=== PATIENT | male | born 2000 | race Caucasian/White ===

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

== ENCOUNTER 2018-05-07 17:08 | Emergency (ER) | payer BC ==
[2018-05-07 17:42] VITALS: BP 121/56
--- NOTE | 2018-05-07 18:00 | UC ---
Respiratory Complaint HPI - HPI Summary HPI Summary: COUGH X 1 WEEK , CHEST CONGESTION , NASAL CONGESTION, PND, SINUS PAIN AND PRESSURE + SOB, WHEEZING NO FEVER, + CHILLS - History of Current Complaint Chief Complaint: UCRespiratory Stated Complaint: URI Time Seen by Provider: 05/07/18 17:56 Hx Obtained From: Patient Onset/Duration: Gradual Onset, Lasting Days - 7, Still Present Timing: Constant Severity Initially: Moderate Severity Currently: Moderate Pain Intensity: 4 Character: Cough: Nonproductive Aggravating Factors: Exertion, Deep Breaths Alleviating Factors: Nothing Associated Signs And Symptoms: Positive: Wheezing, URI, Nasal Congestion. Negative: Dyspnea, Fever, Chills, Pleuritic Chest Pain, Hemoptysis, Dizziness, Calf Pain, Calf Swelling - Allergies/Home Medications Allergies/Adverse Reactions: Allergies Allergy/AdvReac Type Severity Reaction Status Date / Time MS Benzoyl Peroxide Allergy Rash And Verified 09/10/16 08:37 [From Benzaclin] Itching MS Clindamycin Allergy Rash And Verified 09/10/16 08:37 [From Benzaclin] Itching PMH/Surg Hx/FS Hx/Imm Hx Previously Healthy: Yes - Surgical History Surgical History: Yes Surgery Procedure, Year, and Place: Repair of nasal fracture 12/23/13,. 2013 APPENDECTOMY, [facility] - Family History Known Family History: Negative: Cardiac Disease, Hypertension, Diabetes - Social History Alcohol Use: Weekly Substance Use Type: Marijuana Smoking Status (MU): Light Every Day Tobacco Smoker Have You Smoked in the Last Year: No - Immunization History Vaccination Up to Date: Yes Review of Systems Constitutional: Negative Skin: Negative Eyes: Negative ENT: Sore Throat, Nasal Discharge Respiratory: Cough Cardiovascular: Negative Is Patient Immunocompromised?: No All Other Systems Reviewed And Are Negative: Yes Physical Exam Triage Information Reviewed: Yes Appearance: Well-Appearing, No Pain Distress, Well-Nourished Vital Signs: Initial Vital Signs Temp 97.8 F 05/07/18 17:38 Pulse 71 05/07/18 17:38 Resp 18 05/07/18 17:38 BP 121/56 05/07/18 17:38 Pulse Ox 100 05/07/18 17:38 Vital Signs Reviewed: Yes Eye Exam: Normal Eyes: Positive: Conjunctiva Clear ENT: Positive: Normal ENT inspection, Hearing grossly normal, Pharyngeal erythema, Nasal congestion, Nasal drainage Neck: Positive: Supple, Nontender, No Lymphadenopathy Respiratory: Positive: Chest non-tender, Crackles, Wheezing Cardiovascular: Positive: RRR, No Murmur, Brisk Capillary Refill Skin Exam: Normal UC Diagnostic Evaluation - Laboratory O2 Sat by Pulse Oximetry: 100 Diagnostic Studies Comment: CHEST XRAY : NO ACUTE DISEASE Respiratory Course/Dx - Differential Dx/Diagnosis Provider Diagnoses: BRONCHITIS Discharge - Sign-Out/Discharge Documenting (check all that apply): Patient Departure All imaging exams completed and their final reports reviewed: No - Discharge Plan Condition: Stable Disposition: HOME Prescriptions: Albuterol HFA INHALER* [Ventolin HFA Inhaler*] 2 puff INH Q6H PRN #1 mdi PRN Reason: Wheezing Azithromycin TAB* [Zithromax TAB (Z-JOSEY) 250 mg #6 tabs] 2 tab PO .TODAY, THEN 1 DAILY #1 josey predniSONE [Prednisone 20 MG TAB] 40 mg PO DAILY #10 tablet Patient Education Materials: Acute Bronchitis (ED) Referrals: Ijeoma Maria MD [Primary Care Provider] - 7 Days - Billing Disposition and Condition Condition: STABLE Disposition: Home
--- NOTE | 2018-05-08 07:47 | RAD ---
INDICATION: Cough. COMPARISON: Comparison is made with a prior study from August 05, 2017. TECHNIQUE: Dual-energy PA and lateral views of the chest were obtained. FINDINGS: The heart is within normal limits in size. Mediastinal and hilar contours appear within normal limits. The lungs are hyperinflated and clear. No pleural effusion is seen. IMPRESSION: NO EVIDENCE FOR ACTIVE CARDIOPULMONARY DISEASE. R0
--- NOTE | 2018-05-08 09:28 | UC ---
- Progress Note Progress Note: CXR REPORT REVIEWED. NO ACTIVE DISEASE. NO CHANGE IN MGMT - JOSE CAMPUZANO MD Discharge - Sign-Out/Discharge Documenting (check all that apply): Post-Discharge Follow Up All imaging exams completed and their final reports reviewed: Yes - Discharge Plan Condition: Stable Disposition: HOME Prescriptions: Albuterol HFA INHALER* [Ventolin HFA Inhaler*] 2 puff INH Q6H PRN #1 mdi PRN Reason: Wheezing Azithromycin TAB* [Zithromax TAB (Z-RICO) 250 mg #6 tabs] 2 tab PO .TODAY, THEN 1 DAILY #1 rico predniSONE [Prednisone 20 MG TAB] 40 mg PO DAILY #10 tablet Patient Education Materials: Acute Bronchitis (ED) Referrals: [facility] [facility] [Outside] Ijeoma Maria MD [Primary Care Provider] - 7 Days - Billing Disposition and Condition Condition: STABLE Disposition: Home
== END 2018-05-07 18:55 | disposition home or self-care (01) ==
LOC: UCEAST 17:08
DX: J40 Bronchitis, not specified as acute or chronic (principal); Z88.1 Allergy status to other antibiotic agents; Z87.891 Personal history of nicotine dependence
CPT/HCPCS: 71046; 99212; G0463

== ENCOUNTER 2018-09-17 11:30 | Emergency (ER) | payer BC ==
[2018-09-17 12:07] VITALS: BP 129/66
--- NOTE | 2018-09-17 12:25 | UC ---
Skin Complaint HPI - HPI Summary HPI Summary: PATIENT WENT TO [facility] ABOUT 2 WEEKS AGO WITH A RED ELEVATED PAINFUL LESION TO THE OUTSIDE OF HIS RIGHT LOWER LEG. WAS TREATED WITH BACTRIM FOR ABSCESS. PATIENT STATES THE WOUND HAS FLATTENED OUT AND DRAINED A LOT OF PUS. FOR THE PAST 4 DAYS HE STATES IT HAS BECOME MORE AND MORE ITCHY AND DRY. - History of Current Complaint Chief Complaint: UCSkin Time Seen by Provider: 09/17/18 12:04 Stated Complaint: SKIN ISSUE Hx Obtained From: Patient Onset/Duration: Lasting Weeks Timing: Constant Onset Severity: Moderate Current Severity: Mild Pain Intensity: 0 Pain Scale Used: 0-10 Numeric Location: Discrete - RIGHT LATERAL LOWER LEG Character: Pruritus, Redness Aggravating Factor(s): Nothing Alleviating Factor(s): Nothing Associated Signs & Symptoms: Negative: Tenderness, Red Streaks - Allergy/Home Medications Allergies/Adverse Reactions: Allergies Allergy/AdvReac Type Severity Reaction Status Date / Time benzoyl peroxide Allergy Rash And Verified 09/17/18 12:08 Itching clindamycin Allergy Rash And Verified 09/17/18 12:08 Itching Home Medications: Home Medications NK [No Home Medications Reported] 09/17/18 [History Confirmed 09/17/18] PMH/Surg Hx/FS Hx/Imm Hx Previously Healthy: Yes - Surgical History Surgical History: Yes Surgery Procedure, Year, and Place: Repair of nasal fracture 12/23/13,. 2013 [facility]ENDECTOMY, [facility] - Family History Known Family History: Negative: Cardiac Disease, Hypertension, Diabetes - Social History Alcohol Use: Weekly Substance Use Type: Marijuana Substance Use Comment - Amount & Last Used: weekends Smoking Status (MU): Light Every Day Tobacco Smoker Type: Cigarettes Have You Smoked in the Last Year: No - Immunization History Vaccination Up to Date: Yes Review of Systems All Other Systems Reviewed And Are Negative: Yes Constitutional: Positive: Negative Skin: Positive: Other - HEALING ABSCESS RLE Respiratory: Positive: Negative Cardiovascular: Positive: Negative Gastrointestinal: Positive: Negative Physical Exam Triage Information Reviewed: Yes Appearance: Well-Appearing, No Pain Distress, Well-Nourished Vital Signs: Initial Vital Signs Temp 98.0 F 09/17/18 12:01 Pulse 66 09/17/18 12:01 Resp 18 09/17/18 12:01 BP 129/66 09/17/18 12:01 Pulse Ox 100 09/17/18 12:01 Vital Signs Reviewed: Yes Eyes: Positive: Conjunctiva Clear ENT: Positive: Hearing grossly normal Neck: Positive: Supple Respiratory: Positive: No respiratory distress, No accessory muscle use Cardiovascular: Positive: Pulses Normal Abdomen Description: Positive: Soft Musculoskeletal: Positive: No Edema Neurological: Positive: Alert Psychological: Positive: Age Appropriate Behavior Skin: Positive: Other - 3.5CM DIAMETER DRY AREA OF SKIN RIGHT LATERAL LOWER LEG WITH 3MM NECROTIC CENTER Course/Dx - Course Course Of Treatment: THICK AREA OF CENTRAL CRUST REMOVED TODAY USING PICKUPS. WOUND IS HEALING WELL. NO EVIDENCE OF CONTINUED INFECTION. NO FB. HAVE ADVISED ANTIBIOTIC OINTMENT AND A NONSTICK BANDAGE. HE WILL SEEK FOLLOW-UP IF HE DOESN' T CONTINUE TO IMPROVE. - Diagnoses Provider Diagnosis: Healing wound Discharge - Sign-Out/Discharge Documenting (check all that apply): Patient Departure All imaging exams completed and their final reports reviewed: No Studies - Discharge Plan Condition: Stable Disposition: HOME Referrals: Ijeoma Maria MD [Primary Care Provider] - If Needed Additional Instructions: YOUR WOUND IS HEALING WELL. I REMOVED THE THICK CRUST IN THE MIDDLE WHICH SHOULD HELP EXPEDITE RESOLUTION OF THE LESION. COVER IT WITH ANTIBIOTIC OINTMENT AND A NONSTICK BANDAGE TO HELP PREVENT CRUST FROM DEVELOPING AGAIN. KEEP THE SURROUNDING SKIN WELL MOISTURIZED. SEEK REEVALUATION IF YOU DEVELOP RECURRENT REDNESS OF THE SKIN, PURULENT DRAINAGE, FEVER, INCREASING PAIN OR ANY OTHER CONCERNING SYMPTOMS. - Billing Disposition and Condition Condition: STABLE Disposition: Home
== END 2018-09-17 12:50 | disposition home or self-care (01) ==
LOC: UCEAST 11:30
DX: L02.415 Cutaneous abscess of right lower limb (principal); F17.210 Nicotine dependence, cigarettes, uncomplicated; Z88.1 Allergy status to other antibiotic agents; Z88.8 Allergy status to other drugs, medicaments and biological substances
CPT/HCPCS: 99212; G0463

== ENCOUNTER 2019-09-18 19:00 | Emergency (ER) | payer BC ==
--- OUTSIDE RECORDS SUMMARY | 2019-09-18 19:14 | XMS REPORT | Summary of Care ---
:2000 Author Organization [facility] Address [address] [place] [address] Care Team Providers Name Role Phone JohannyScott Primary Care Provider Reason for Visit Reason Comments Rash Rash continues, more blotchy spots Other (R) lower groin pain when coughs, intermittent pain Encounter Details Date Type Department Care Team Description 09/15/2019 Office Visit [facility] Emerson Celestin MD Rash (Primary Dx); Practice [address] [place] [address] Dyspnea, unspecified type [address] [place] [address] [place] [address] [phone] Allergies Active Allergy Reactions Severity Noted Date Comments Minocycline Rash 08/04/2013 documented as of this encounter (statuses as of 09/15/2019) Medications Medication Sig Dispensed Refills Start Date End Date Status albuterol HFA Take 2 Puffs by 1 Inhaler 1 09/05/2019 Active (VENTOLIN) 108 inhalation (90 Base) MCG/ACT EVERY FOUR Inhalation Aero HOURS NEEDED SolnIndications: (for wheezing). Bilateral wheezing clotrimazole Apply to the 1 Tube 0 09/15/2019 Active (LOTRIMIN) 1 % arm and cheek Apply externally twice a day for CreamIndications: one week. Rash hydrOXYzine HCL Take 1 Tab by 120 Tab 0 09/05/2019 Discontinued (ATARAX) 25 MG mouth THREE 0 (Patient stopped Oral TIMES DAILY the medication) TabIndications: NEEDED (rash). Rash azithromycin Take 2 pills on 6 Tab 0 09/05/2019 Discontinued (ZITHROMAX Z-JOSEY) the first day 0 (Therapy 250 MG Oral and 1 pill each Completed) TabIndications: day for 4 days Bilateral wheezing documented as of this encounter (statuses as of 09/15/2019) Active Problems Problem Noted Date Right ankle pain 06/21/2015 Elbow pain 02/24/2015 documented as of this encounter (statuses as of 09/15/2019) Immunizations Name Administration Dates Next Due DTAP Vaccine 05/30/2002, 1998, 1998, 1998 DTAP/IPV/HIB 12/08/1999 HIB 1998, 1998, 1998 Hepatitis A Vaccine Peds 02/27/2011, 03/13/2008 Hepatitis B Vaccine 1998 MENINGOCOCCAL CONJUGATE VACCINE 04/05/2009 MMR VACCINE 05/30/2002, 07/05/1999 Polio - Inactivated Vaccine 05/30/2002, 07/05/1999, 1998, 1998 TDAP Vaccine 04/05/2009 Tuberculin Skin Test 01/28/2001 Varicella Vaccine Live 03/13/2008, 02/06/2003 documented as of this encounter Social History Tobacco Use Types Packs/Day Years Used Date Never Smoker Smokeless Tobacco: Never Used Alcohol Use Drinks/Week oz/Week Comments No Sex Assigned at Date Recorded Not on file Job Start Date Occupation Industry Not on file Not on file Not on file Travel History Travel Start Travel End No recent travel history available. documented as of this encounter Last Filed Vital Signs Vital Sign Reading Time Taken Comments Blood Pressure 142/70 09/15/2019 9:32 AM EST Pulse 77 09/15/2019 9:32 AM EST Temperature 36.3 09/15/2019 9:32 AM EST C (97.3 F) Respiratory Rate 18 09/15/2019 9:32 AM EST Oxygen Saturation 99% 09/15/2019 9:32 AM EST Inhaled Oxygen Concentration - - Weight 75.8 kg (167 lb) 09/15/2019 9:32 AM EST Height 186.1 cm (6' 1.25") 09/15/2019 9:32 AM EST Body Mass Index 21.88 09/15/2019 9:32 AM EST documented in this encounter Patient Instructions Patient InstructionsRistedt, MD Emerson - 09/15/2019 9:40 AM ESTPick up medication for rash Follow up if the rash doesn't improve or gets worse. documented in this encounter Progress Notes Emerson Celestin MD - 09/15/2019 9:40 AM EST PATIENT: Travon Pop : 2000 DATE OF SERVICE: 09/15/2019 CHIEF COMPLAINT: Chief Complaint Patient presents with Rash Rash continues, more blotchy spots Other (R) lower groin pain when coughs, intermittent pain Subjective HISTORY OF PRESENT ILLNESS: Travon Pop is a 19-y.o. male. Pt here to follow up on breathing challenges and rash. States his breathing is much better with the inhaler, twice a day. States the rash on his face continues and is also involving his arms and chest but is not longer itchy with the use of Atarax. Also notes a pain in his right side of the groin whencoughing , sneezing and turning his car. Past Medical History: Diagnosis Date Ankle sprain 03/03 right Olecranon bursitis of both elbows 03/03 Family History Problem Relation Age of Onset Asthma Maternal Grandmother Diabetes Maternal Grandmother Hypertension Maternal Grandmother Current Outpatient Medications Medication Sig albuterol HFA (VENTOLIN) 108 (90 Base) MCG/ACT Inhalation Aero Soln Take 2 Puffs by inhalation EVERY FOUR HOURS NEEDED (for wheezing). No current facility-administered medications for this visit. Allergies Allergen Reactions Minocycline Rash Social History Socioeconomic History Marital status: Single Spouse name: Not on file Number of children: Not on file Years of education: Not on file Highest education level: Not on file Occupational History Not on file Social Needs Financial resource strain: Not on file Food insecurity Worry: Not on file Inability: Not on file Transportation needs Medical: Not on file Non-medical: Not on file Tobacco Use Smoking status: Never Smoker Smokeless tobacco: Never Used Substance and Sexual Activity Alcohol use: No Drug use: No Sexual activity: Never Lifestyle Physical activity Days per week: Not on file Minutes per session: Not on file Stress: Not on file Relationships Social connections Talks on phone: Not on file Gets together: Not on file Attends samaritan service: Not on file Active member of club or organization: Not on file Attends meetings of clubs or organizations: Not on file Relationship status: Not on file Intimate partner violence Fear of current or ex partner: Not on file Emotionally abused: Not on file Physically abused: Not on file Forced sexual activity: Not on file Other Topics Concern Back Care Not Asked Bike Helmet Yes Blood Transfusions Not Asked Caffeine Concern Not Asked Exercise Yes Comment: football Hobby Hazards Not Asked International Travel Not Asked Service Not Asked Occupational Exposure Not Asked Seat Belt Not Asked Self-Exams Not Asked Sleep Concern No Special Diet No Stress Concern No Weight Concern No Social History Narrative Lives with parents, younger brother. [place] [employer]. REVIEW OF SYSTEMS: Review of Systems Constitutional: Negative for chills, fever and malaise/fatigue. Musculoskeletal: Negative for back pain, falls, joint pain, myalgias and neck pain. Skin: Positive for rash. Negative for itching. Neurological: Negative for dizziness, tingling, speech change, focal weakness and headaches. Psychiatric/Behavioral: Positive for substance abuse. Negative for depression, hallucinations, memory loss and suicidal ideas. The patient is nervous/anxious. The patient does not have insomnia. Objective PHYSICAL EXAM: VITALS: BP (!) 142/70 (BP Location: Right arm, Patient Position: Sitting) | Pulse 77 | Temp 97.3 F (36.3 C) (Tympanic) | Resp 18 | Ht 6' 1.25" ( 1.861 m) | Wt 167 lb (75.8 kg) | SpO2 99%| BMI 21.88 kg/m Body mass index is 21.88 kg/m. Physical Exam Vitals signs and nursing note reviewed. Constitutional: General: He is not in acute distress. Appearance: Normal appearance. He is normal weight. He is not ill-appearing, toxic-appearing or diaphoretic. HENT: Head: Normocephalic and atraumatic. Right Ear: Tympanic membrane and ear canal normal. There is no impacted cerumen. Left Ear: Tympanic membrane and ear canal normal. There is no impacted cerumen. Mouth/Throat: Mouth: Mucous membranes are moist. Pharynx: Oropharynx is clear. No oropharyngeal exudate or posterior oropharyngeal erythema. Neck: Musculoskeletal: Normal range of motion and neck supple. No muscular tenderness. Cardiovascular: Rate and Rhythm: Normal rate and regular rhythm. Pulses: Normal pulses. Heart sounds: Normal heart sounds. No murmur. No friction rub. No gallop. Pulmonary: Effort: Pulmonary effort is normal. Breath sounds: Normal breath sounds. No wheezing, rhonchi or rales. Abdominal: General: Abdomen is flat. Bowel sounds are normal. There is no distension. Palpations: There is no mass. Tenderness: There is no abdominal tenderness. There is no right CVA tenderness or left CVA tenderness. Hernia: No hernia is present. Lymphadenopathy: Cervical: No cervical adenopathy. Skin: General: Skin is warm and dry. Findings: Rash (small areas of erythema in a ring pattern x 2 but not on face. Here is it simply erythematous.) present. Neurological: General: No focal deficit present. Mental Status: He is alert and oriented to person, place, and time. Psychiatric: Mood and Affect: Mood normal. Behavior: Behavior normal. ASSESSMENT / IMPRESSION: 1. Rash Still unclear etiology of the rash but it is improved everywhere except his right cheek and right arm where there are now small circles of erythema. No classic for ringworm but will use cream to see ifit resolves the rash. Follow up in 3 weeks if not improved or if it worsens again. - clotrimazole (LOTRIMIN) 1 % Apply externally Cream; Apply to the arm and cheek twice a day for oneweek. Dispense: 1 Tube; Refill: 0 2. Dyspnea, unspecified type Resolving with time. Likely had a viral process which responded well to albuterol but also could have been impure inhalent from either a community bong or vaping. Advised to ensure healthy inhalents and counseled to quit if possible. Plan As above. Author: Emerson Celestin MD 09/15/2019 10:00 documented in this encounter Plan of Treatment Health Maintenance Due Date Last Done Comments HPV IMMUNIZATION SERIES (1 - 2009 Male 2-dose series) HIV SCREENING 2013 DTaP/Tdap/Td Vaccines (7 - 04/05/2019 04/05/2009, 05/30/2002, Tdap) 12/08/1999, Additional history exists INFLUENZA VACCINE (#1) 2019 DEPRESSION SCREENING 09/05/2020 09/05/2019 MENINGOCOCCAL VACCINE IMM Aged Out 04/05/2009 No longer eligible based on patient's age to complete this topic HEPATITIS A IMMUNIZATION Completed 02/27/2011, 03/13/2008 SERIES PNEUMOCOCCAL 0-64 YRS Aged Out No longer eligible based on patient's age to complete this topic documented as of this encounter Results Not on filedocumented in this encounter Visit Diagnoses Diagnosis Rash Rash and other nonspecific skin eruption Dyspnea, unspecified type documented in this encounter Insurance Payer Benefit Plan / Subscriber ID Effective Dates Phone Address Type Group [facility] xxxxxxxxxxxx 2018-Present [employer] documented as of this encounter
--- OUTSIDE RECORDS SUMMARY | 2019-09-18 19:14 | XMS REPORT | Summary of Care ---
:2000 Author Organization [facility] Address [address] [facility] [place] [address] Care Team Providers Name Role Phone FawadEmerson Primary Care Provider Reason for Referral Refer to Department Only (Routine) Status Reason Specialty Diagnoses / Referred By Contact Referred To Contact Procedures Closed DERMATOLOGY Diagnoses Galina Helms Yentzer, Brad A, MD PA-C [address] [facility] [address] [place], [place] [id number] [place] [id number] Reason for Visit Reason Comments Abdominal Pain RLQ pain for 1 week with some diarrhea and some constipation, odd redness all over the body and some muscle spasms, Encounter Details Date Type Department Care Team Description 09/18/2019 Office Visit Estefania Carlton Galina Fish Rash (Primary Dx); Practice PA-C Constipation, unspecified constipation type [address] [facility] [address] [place], [place] [id number] [place] [address] [phone] Allergies Active Allergy Reactions Severity Noted Date Comments Minocycline Rash 08/04/2013 documented as of this encounter (statuses as of 09/18/2019) Medications Medication Sig Dispensed Refills Start Date End Date Status albuterol HFA Take 2 Puffs by 1 Inhaler 1 09/05/2019 Active (VENTOLIN) 108 (90 inhalation EVERY Base) MCG/ACT FOUR HOURS Inhalation Aero NEEDED (for SolnIndications: wheezing). Bilateral wheezing clotrimazole Apply to the arm 1 Tube 0 09/15/2019 Active (LOTRIMIN) 1 % Apply and cheek twice a externally day for one week. CreamIndications: Rash documented as of this encounter (statuses as of 09/18/2019) Active Problems Problem Noted Date Right ankle pain 06/21/2015 Elbow pain 02/24/2015 documented as of this encounter (statuses as of 09/18/2019) Immunizations Name Administration Dates Next Due DTAP [...] Sign Reading Time Taken Comments Blood Pressure 136/84 09/18/2019 8:24 AM EST Pulse 89 09/18/2019 8:24 AM EST Temperature 36.6 09/18/2019 8:24 AM EST C (97.9 F) Respiratory Rate - - Oxygen Saturation 98% 09/18/2019 8:24 AM EST Inhaled Oxygen Concentration - - Weight 76.2 kg (168 lb) 09/18/2019 8:24 AM EST Height 187.3 cm (6' 1.75") 09/18/2019 8:24 AM EST Body Mass Index 21.72 09/18/2019 8:24 AM EST documented in this encounter Patient Instructions Patient InstructionsGalina Fish PA-C - 09/18/2019 8:20 AM EST1. Did referral to Dr. Yentzer -- patient care secretary called appointment Sunday 2. Long discussion with patient, most likely constipation Recommend liquid diet today -- water, broth, jello, gatoraid, chicken noodle soup, crackers, apple juice OTC Miralax once daily until stools are back to normal, then change to once every 2-3 days Avoid dairy, nuts, bananas, rice until constipation has resolved Call if not improving or with any questions or concerns Follow up with DR. Gandhi as needed documented in this encounter Progress Notes Galina Fish PA-C - 09/18/2019 8:20 AM EST PATIENT: Travon Pop : 2000 DATE OF SERVICE: 09/18/2019 REFERRING PRACTITIONER: Self-Referred PRIMARY CARE PROVIDER: Scott Orlando CHIEF COMPLAINT: Chief Complaint Patient presents with Abdominal Pain RLQ pain for 1 week with some diarrhea and some constipation, odd redness all over the body and some muscle spasms, Subjective HISTORY OF PRESENT ILLNESS: Travon Pop is a 19-y.o. male who presents with continuing RLQ pain, diarrhea , constipation, redness and muscle spasms x 1-[address] Celestin 09/15/19 for same problems Was prescribed lotrimin for rash Patient says Lotrimin gave minor relief, still has patches of redness, no itch 1. RLQ, constipation x 5 days Breakfast: yogurt or bagle, OJ Lunch: BLT or chicken tenders, fries, water Dinner: protein, rice, veggies, water Snacks: trail mix, veggies straws, microwave pizza Soda: rare Alcohol: Sunday-sat 6-7 beers each night Last BM was very small, had to push yesterday afteroon Denies fever, chills, nausea, vomiting, diarrhea, chest pains, SOB Past Medical History: Diagnosis Date Ankle sprain 03/03 right Olecranon bursitis of both elbows 03/03 Past Surgical History: Procedure Laterality Date APPENDECTOMY 02/2013 Dr. Sood NASAL FRACTURE REDUCTION Dr. Alana Family History Problem Relation Age of Onset Asthma Maternal Grandmother Diabetes Maternal Grandmother Hypertension Maternal Grandmother Current Outpatient Medications Medication Sig albuterol HFA (VENTOLIN) 108 (90 Base) MCG/ACT Inhalation Aero Soln Take 2 Puffs by inhalation EVERY FOUR HOURS NEEDED (for wheezing). clotrimazole (LOTRIMIN) 1 % Apply externally Cream Apply to the arm and cheek twice a day forone week. No current facility-administered medications for this visit. [...] file Gets together: Not on file Attends evangelical service: Not on file Active member of [...] History Narrative Lives with parents, younger brother. [employer]. REVIEW OF SYSTEMS: Skin: flat patches of redness, no itch or pain Eyes: negative visual blurring Ears/Nose/Throat: negative rhinorrhea, sore throat, sinus pressure, post nasal drip Respiratory: negative cough Cardiovascular: negative chest pain Gastrointestinal: positive RLQ abdominal pain, constipation Genitourinary: negative burning on urination, dysuria Musculoskeletal: negative arthritis/joint pain Neurologic: negative numbness or tingling of feet or hands Psychiatric: positive anxiety Hematologic/Lymphatic/Immunologic: negative allergies Endocrine: negative diabetes or hot flashes/sweats Objective PHYSICAL EXAMINATION: VITALS: BP 136/84 (BP Location: Left arm, Patient Position: Sitting) | Pulse 89 | Temp 97.9 F(36.6 C) | Ht 6' 1.75" (1.873 m) | Wt 168 lb (76.2 kg ) | SpO2 98% | BMI 21.72 kg/m Bodymass index is 21.72 kg/m. General appearance - alert, mild distress, cooperative, oriented times 3 Skin - scattered patches flat erythema. Non-tender, no discharge Head - Normocephalic. No masses, lesions, tenderness or abnormalities Eyes - conjunctivae/corneas clear. PERRL, EOM's intact. Oropharynx - Lips, mucosa, and tongue normal. Teeth and gums normal. Oropharynx normal. Neck - Neck supple, FROM. No cervical or supraclavicular adenopathy. Thyroid normal, no enlargement Lungs - Good diaphragmatic excursion. Lungs clear. Chest symmetrical. Normal breath sounds. Heart - RRR. No murmurs, clicks or gallops. No peripheral edema. ABDOMEN: soft, mild tenderness RU and RL quadrant with palpation. Bowel sounds normal. No masses, no organomegaly. . IMPRESSION: ICD-9-CM ICD-10-CM 1. Rash 782.1 R21 REFER TO DERMATOLOGY 2. Constipation, unspecified constipation type 564.00 K59.00 Plan PLAN: 1. Did referral to Dr. Harrison -- patient care secretary called appointment Sunday 2. Long discussion with patient, most likely constipation Recommend liquid diet today -- water, broth, jello, gatoraid, chicken noodle soup, crackers, apple juice OTC Miralax once daily until stools are back to normal, then change to once every 2-3 days Avoid dairy, nuts, bananas, rice until constipation has resolved Call if not improving or with any questions or concerns Follow up with DR. Gandhi as needed Author: Galina Fish PA-C 09/18/2019 08:28 documented in this encounter Plan of Treatment Name Type Priority Associated Diagnoses Order Schedule REFER TO DERMATOLOGY Referral Routine Rash Expected: 09/18/2019, Expires: 09/18/2020 Health Maintenance Due Date Last Done Comments [...] Rash Rash and other nonspecific skin eruption Constipation, unspecified constipation type documented in this encounter Insurance Payer Benefit Plan / Subscriber ID Effective Dates Phone Address Type Group [employer] x[employer]xxx 2018-Present [employer] documented as of this encounter
[2019-09-18 20:15] LABS: INR 1.03 (0.82-1.09)
[2019-09-18 20:16] LABS: ABS Eosinophils 0.1 10^3/ul (0-0.6); ABS Lymphocytes 1.6 10^3/ul (1.0-4.8); ABS Monocytes 0.5 10^3/ul (0-0.8); ABS Neutrophils 4.1 10^3/ul (1.5-7.7); Eosinophil % 1.6 %; Hematocrit 41 % (42-52); Hemoglobin 14.2 g/dL (14.0-18.0); Mean Corpuscular HGB Conc 35 g/dL (31-36); Mean Corpuscular Hemoglobin 33 pg (27-31); Mean Corpuscular Volume 95 fL (80-94); Mean Platelet Volume 7.2 fL (7.4-10.4); Platelet Count 200 10^3/uL (150-450); Red Blood Count 4.27 10^6 /uL (4.18-5.48); Red Cell Distribution Width 13 % (10-15); White Blood Count 6.3 10^3/uL (3.5-10.8)
[2019-09-18 20:32] LABS: Albumin 4.2 g/dL (3.2-5.2); Albumin/Globulin Ratio 1.8 (1-3); BUN/Creatinine Ratio 10.7 (8-20); Calcium 9.2 mg/dL (8.6-10.3); EGFR African American 110.3 (>60); EGFR Non-African American 91.2 (>60); Globulin 2.4 g/dL (2-4); Potassium 3.8 mmol/L (3.5-5.0); Total Bilirubin 0.5 mg/dL (0.2-1.0); Total Protein 6.6 g/dL (6.4-8.9)
--- NOTE | 2019-09-18 20:33 | ED ---
HPI Chest Pain - HPI Summary HPI Summary: This pt is a 19 Y/O M presenting to [facility] with a CC of L sided CP that is currently intermittent and has been present since 2 weeks [employer]. He states that the pain is rated a 6/10 in severity. He recently had a lung infection that was treated with a Z-pack that resulted in red bazan on his face and intermittent diarrhea and constipation. He states that he began to have numbness and tingling in his extremities and has been having lower extremity muscle spasms. His mother states that his face became splotchy and has not cleared up since the onset of the incidents. He states that he has a cough and has been increasingly fatigued. He also has been more nauseas that usual and states that the effects are present for the entirety of the day. He denies any fevers, chills, headaches, vomiting, increased frequency or urination, and SOB. He states that he has no aggravating or alleviating factors. He states that he has been reducing his amount of smoking and states that he smokes E-cigarettes. He has no pertinent PMHx. His parents state that there is a FHx of diaz syndrome. He states that he was given an inhaler but has not used it in the past two days due to it making him feel weird. - History of Current Complaint Chief Complaint: EDChestWallPain Time Seen by Provider: 09/18/19 20:16 Hx Obtained From: Patient Onset/Duration: Started Weeks Ago - 2 Timing: Constant Initial Severity: Moderate Current Severity: Moderate Pain Intensity: 6 Pain Scale Used: 0-10 Numeric Chest Pain Location: Left Anterior Chest Pain Radiates: No Aggravating Factor(s): Nothing Alleviating Factor(s): Nothing Associated Signs and Symptoms: Positive: Negative - increased urination, Chest Pain, Recent Stress, Numbness - extremities, Tingling - extremities, Nausea, Other: - increased fatigued. Negative: Headaches, Shortness of Breath - increased fatigued, lower extremiity muscle spasms, Fever, Chills, Cough, Vomiting - Allergy/Home Medications Allergies/Adverse Reactions: Allergies Allergy/AdvReac Type Severity Reaction Status Date / Time benzoyl peroxide Allergy Rash And Verified 09/18/19 19:04 Itching clindamycin Allergy Rash And Verified 09/18/19 19:04 Itching Home Medications: Home Medications Albuterol HFA INHALER* [Ventolin HFA Inhaler*] 2 puff INH Q4H PRN 09/18/19 [ History Confirmed 09/18/19] hydrOXYzine HCL TAB* [Atarax 25 MG TAB*] 25 mg PO TID PRN 09/18/19 [History Confirmed 09/18/19] PMH/Surg Hx/FS Hx/Imm Hx Previously Healthy: Yes Endocrine/Hematology History: Denies: Hx Diabetes, Hx Thyroid Disease Cardiovascular History: Denies: Hx Hypertension Respiratory History: Denies: Hx Asthma, Hx Chronic Obstructive Pulmonary Disease (COPD) GI History: Denies: Hx Ulcer Sensory History: Reports: Hx Contacts or Glasses - GLASSES Denies: Hx Hearing Aid Opthamlomology History: Reports: Hx Contacts or Glasses - GLASSES - Cancer History Hx Chemotherapy: No Hx Radiation Therapy: No - Surgical History Surgical History: Yes Surgery Procedure, Year, and Place: Repair of nasal fracture 12/23/13,. 2013 APPENDECTOMY, [facility] Hx Anesthesia Reactions: No - Immunization History Immunizations Up to Date: Yes Infectious Disease History: No Infectious Disease History: Denies: Hx Hepatitis, Hx Human Immunodeficiency Virus (HIV), Traveled Outside the [place] in Last 30 Days - Family History Known Family History: Negative: Cardiac Disease, Hypertension, Diabetes - Social History Occupation: Student Lives: Dormitory/Roommates Alcohol Use: Weekly Hx Substance Use: Yes Substance Use Type: Reports: None, Marijuana Substance Use Comment - Amount & Last Used: weekends Hx Tobacco Use: Yes Smoking Status (MU): Light Every Day Tobacco Smoker Type: eCigarettes Have You Smoked in the Last Year: No Review of Systems Positive: Fatigue. Negative: Fever, Chills Positive: Chest Pain - left anterior Positive: Cough. Negative: Shortness Of Breath Positive: Nausea. Negative: Vomiting Genitourinary: Negative Positive: Other - muscle spasms Positive: Rash - on face, red "splotches" Neurological: Other - POSITIVE: tingling in lower extremities Positive: Numbness - lower extremities . Negative: Headache All Other Systems Reviewed And Are Negative: Yes Physical Exam - Summary Physical Exam Summary: General: Well-developed, Well-nourished, moderately anxious appearing male. No acute distress. HEENT: Normocephalic, Atraumatic. Eyes: Conjuctiva normal, PERRL. Ears: TMs within normal limits. Nares: (-) discharge, (-) erythema. Oropharynx: Clear, mucous membranes moist, (-) exudates. Neck: Soft, FROM, (-) lymphadenopathy, (-) thyromegaly, (-) JVD. Cardiovascular: Normal sinus rhythm, (-) murmur. Lungs: Clear to auscultation bilaterally, mild wheezing on forced expiration, prolonged expiration (-) rales, (-) rhonchi. Abdomen: Soft, non-tender, non-distended, (-) organomegaly, normal bowel sounds. Back: (-) CVA tenderness Extremities: No edema. Skin: Warm, dry, (-) rash. Neuro: Alert and oriented x3, no focal deficits. Psychiatric: Mood normal, affect normal. Triage Information Reviewed: Yes Vital Signs On Initial Exam: Initial Vitals Temp Pulse Resp BP Pulse Ox 98.9 F 76 18 144/73 98 09/18/19 19:04 09/18/19 19:04 09/18/19 19:04 09/18/19 19:04 09/18/19 19:04 Vital Signs Reviewed: Yes Procedures - Sedation Patient Received Moderate/Deep Sedation with Procedure: No Diagnostics - Vital Signs Vital Signs Temp Pulse Resp BP Pulse Ox 09/18/19 19:04 98.9 F 76 18 144/73 98 - Laboratory Lab Results: Lab Results 09/18/19 09/18/19 Range/Units 20:01 20:01 WBC 6.3 (3.5-10.8) 10^3/uL RBC 4.27 (4.18-5.48) 10^6 /uL Hgb 14.2 (14.0-18.0) g/dL Hct 41 L (42-52) % MCV 95 H (80-94) fL MCH 33 H (27-31) pg MCHC 35 (31-36) g/dL RDW 13 (10-15) % Plt Count 200 (150-450) 10^3/uL MPV 7.2 L (7.4-10.4) fL Neut % (Auto) 64.5 % Lymph % (Auto) 26.0 % [place] % (Auto) 7.8 % Eos % (Auto) 1.6 % Baso % (Auto) 0.1 % Absolute Neuts (auto) 4.1 (1.5-7.7) 10^3/ul Absolute Lymphs (auto) 1.6 (1.0-4.8) 10^3/ul Absolute Monos (auto) 0.5 (0-0.8) 10^3/ul Absolute Eos (auto) 0.1 (0-0.6) 10^3/ul Absolute Basos (auto) 0.0 (0-0.2) 10^3/ul Absolute Nucleated RBC 0.0 10^3/ul Nucleated RBC % 0.0 INR (Anticoag Therapy) 1.03 (0.82-1.09) Result Diagrams: 09/18/19 20:01 09/18/19 20:01 Lab Statement: Any lab studies that have been ordered have been reviewed, and results considered in the medical decision making process. - Radiology CXR Radiology Interpretation Completed By: ED Physician Summary of Radiographic Findings: No infiltrate. No pleural effusion. Pending official review. Abdominal X-Ray Radiology Interpretation Completed By: ED Physician Summary of Radiographic Findings: No acute processes. Pending offical review. - EKG 1900 Cardiac Rate: NL - 68 BPM EKG Rhythm: Sinus Rhythm ST Segment: Normal Ectopy: None Summary of EKG Findings: EKG at 1900 reveals normal sinus rhythm with rate of 68 BPM, no acute changes, no ischemic changes. This EKG was reviewed and interpreted by Dr. Delcid at 190509/18/[address] Cobb at 2019. Chest Pain Course/Dx - Course Course Of Treatment: 19-year-old male presents with multiple concerns. Patient states he has been sick for a couple weeks now. Respiratory symptoms. He thought he was getting better but tonight has worsening tightness in his chest. Difficulty taking a deep breath. Patient also has multiple other complaints. He states he is worried that something is going on with his health and is interfering with his other activities. Parents are both with him. Patient also has right lower quadrant discomfort. He states he had diarrhea for a period of time and now has constipation and discomfort. He also has a history of an appendectomy. No fevers chills or cough at this time. he does admit to vaping and marijuana use. alcohol on the weekends, He still plays basketball many times a week. Difficulty Breathing does not interfere with activity. Physical exam is essentially within normal limits except for prolonged expirations and mild wheezing. Symptoms improved after DuoNeb.. Workup demonstrates essentially normal blood work. Normal chest x-ray and abdominal x- ray. Patient given an albuterol inhaler and training for use at home. Follow up with PCP. Follow-up sooner for any worsening symptoms. - Diagnoses Provider Diagnoses: Chest tightness, RLQ abdominal pain, Anxiety Discharge ED - Sign-Out/Discharge Documenting (check all that apply): Patient Departure - discharge - Discharge Plan Condition: Stable Disposition: HOME Patient Education Materials: Chest Pain (ED), Abdominal Pain (ED), Anxiety (ED) Referrals: Ijeoma Maria MD [Primary Care Provider] - 2 Days Additional Instructions: PLEASE FOLLOW UP WITH YOUR PRIMARY CARE PHYSICIAN IN 1-3 DAYS AND RETURN TO THE EMERGENCY DEPARTMENT FOR ANY NEW OR WORSENING SYMPTOMS. - Billing Disposition and Condition Condition: STABLE Disposition: Home - Attestation Statements Document Initiated by Scribe: Yes Documenting Scribe: Jluis Lechuga Provider For Whom [facility] is Documenting (Include Credential): Yuridia Cobb MD Scribe Attestation: Jluis Santoyo, scribed for Yuridia Cobb MD on 09/19/19 at 0310. Scribe Documentation Reviewed: Yes Provider Attestation: The documentation as recorded by the Jluis thrasher accurately reflects the service I personally performed and the decisions made by , Yuridia Cobb MD Status of Scribe Document: Viewed
[2019-09-18] MEDS ORDERED: Albuterol/Ipratropium NEB.SOL* Albuterol 2.5 MG/Ipratropium 0.5 MG 3 ML INH ONE (20:46)
[2019-09-18] MEDS ORDERED: Albuterol HFA INHALER* 8 gm MDI INH ONE (23:04)
[2019-09-18 23:34] VITALS: BP 118/64
== END 2019-09-18 23:31 | disposition home or self-care (01) ==
LOC: ED 19:00
DX: R07.9 Chest pain, unspecified (principal); R10.31 Right lower quadrant pain; F41.9 Anxiety disorder, unspecified; F17.290 Nicotine dependence, other tobacco product, uncomplicated; Z90.89 Acquired absence of other organs; Z88.1 Allergy status to other antibiotic agents; Z88.8 Allergy status to other drugs, medicaments and biological substances
CPT/HCPCS: 36415; 71045; 74018; 80053; 84484; 85025; 85610; 93005; 99282; A9270-GY